=== PATIENT | female | born 1995 | race Caucasian/White ===

== ENCOUNTER 2020-09-06 10:48 | Outpatient (CLI) | payer MEDICAID, SELFPAY ==
[2020-09-06 11:16] VITALS: BP 143/89; PULSE 87
[2020-09-06 11:22] LABS: Basophils Percent Auto 0.2 % (0.2-1.2); Eosinophils Absolute Auto 0.2 K/mm3 (0-0.3); Eosinophils Percent Auto 1.6 % (0-4.4); Hematocrit 28.3 % (37.0-47.0); Hemoglobin 9.5 g/dL (12.0-15.0); Immature Granulocyte Absolute 0.08 K/mm3 (0.00-0.031); Immature Granulocyte Percent A 0.8 % (0-0.5); Lymphocytes Absolute Auto 1.51 K/mm3 (0.9-3.2); Lymphocytes Percent Auto 15.2 % (18.3-44.2); Mean Corpuscular HGB Conc 33.6 g/dl (32-36); Mean Corpuscular Hemoglobin 29.6 pg (26-34); Mean Corpuscular Volume 88.2 fl (80-100); Mean Platelet Volume 9.5 fl (7.4-10.4); Monocytes Absolute Auto 0.7 K/mm3 (0.1-0.6); Monocytes Percent Auto 6.9 % (2.6-8.5); Neutrophils Absolute Auto 7.5 K/mm3 (1.3-6.7); Neutrophils Percent Auto 75.3 % (45.5-73.1); Platelet Count Result 278 k/mm3 (150-375); Red Blood Count 3.21 M/mm3 (4.2-5.4); Red Cell Distribution Width 12.7 % (11.5-14.5)
[2020-09-06 11:29] LABS: Add Urine Microscopic? YES; Appearance Urine Cloudy (Clear); Bacteria Urine Trace /hpf; Bilirubin Urine Negative (Negative); Blood Urine 1+ (Negative); Color Urine Yellow (Yellow); Glucose Urine UA Negative (Negative); Ketones Urine Negative (Negative); Leukocyte Esterase Ur Negative LEU/UL (NEGATIVE); Mucus Urine Rare /lpf; Nitrate Urine Negative (Negative); Protein Urine Negative (Negative); Specific Grav Ur 1.009 (1.001-1.035); Squamous Epithelial Cell Urine Many /hpf (Few); Urobilinogen Urine Negative mg/dL (<2.0); WBC Urine 0-3 /hpf (0-3)
[2020-09-06 11:30] VITALS: BP 142/84; PULSE 80
[2020-09-06 11:33] LABS: Creatinine Urine 38.7 mg/dL; Total Protein Urine Random 15 mg/dL; Ur Ttl Prot Creatinine Ratio 0.39 mg/mg (0-0.20)
[2020-09-06 11:40] LABS: Alanine Aminotransferase 11 U/L (4-35); Albumin Level 3.7 g/dL (3.5-5.1); Alkaline Phosphatase 94 U/L (38-126); Anion Gap 9 mmol/L (8-16); Aspartate Amino Transferase 19 U/L (14-36); Bilirubin,Total 0.3 mg/dL (0.2-1.3); Blood Urea Nitrogen 7 mg/dL (7-17); Calcium 8.5 mg/dL (8.4-10.2); Carbon Dioxide 20 mmol/L (22-30); Chloride 107 mmol/L (98-107); Estimated Glomerular Filt Rate > 60; Glucose 81 mg/dL (65-105); Potassium 3.6 mmol/L (3.4-5.0); Sodium 136 mmol/L (137-145); Uric Acid 3.8 mg/dL (2.5-7.5)
[2020-09-06] MEDS: BETAMETHASONE SOD PHOS/ACETATE 30 MG/5 ML VIAL 12 MG IM (11:42)
[2020-09-06 11:45] VITALS: BP 138/82; PULSE 80
--- NOTE | 2020-09-06 11:48 | PC.NURSE ---
Called Dr. Jin with lab results and BPs. Informed that pt states that she has a slight headache, but has not taken anything for it. May D/C home with 24hr urine and return tomorrow for 2nd Celestone injection. Follow up in office early next week.
== END 2020-09-06 12:00 | disposition home or self-care (01) ==
LOC: ANHOBOP 10:53 → ANHOBPP 10:54
PROVIDERS: Referring Provider Obstetrics & Gynecology; Visit Provider Obstetrics & Gynecology
DX: O13.9 Gestational [pregnancy-induced] hypertension without significant proteinuria, unspecified trimester (principal); Z3A.00 Weeks of gestation of pregnancy not specified
CPT/HCPCS: 36415; 59025; 80053; 81001; 82570; 84156; 84550; 85025; 87086; 99199; J0702

== ENCOUNTER 2020-09-07 11:38 | Outpatient (CLI) | payer MEDICAID, SELFPAY ==
[2020-09-07 11:46] VITALS: BMI 26.5
[2020-09-07] MEDS: BETAMETHASONE SOD PHOS/ACETATE 30 MG/5 ML VIAL 12 MG IM (12:05)
[2020-09-07 13:51] LABS: Collection Time Urine 24 HOURS
[2020-09-07 13:58] LABS: Creatinine Urine 43.8 mg/dL; Patient Weight 164 Lbs
[2020-09-07 15:40] LABS: Specific Gravity Ur 1.008
[2020-09-07 16:03] LABS: Total Volume 24 Hour Urine 3100 ml
[2020-09-07 22:48] LABS: Total Protein Urine 24 Hr 11 MG/DAY (28-141)
== END 2020-09-07 11:39 | disposition home or self-care (01) ==
LOC: ANHOBOP 11:42
PROVIDERS: Visit Provider Obstetrics & Gynecology
DX: O13.9 Gestational [pregnancy-induced] hypertension without significant proteinuria, unspecified trimester (principal); Z3A.00 Weeks of gestation of pregnancy not specified
CPT/HCPCS: 81050; 82575; 84156; 96372; J0702

== ENCOUNTER 2020-10-04 21:27 | Observation (INO) | payer OTHER, SELFPAY ==
[2020-10-04] VITALS (12 sets, daily range): BP systolic 127–145; BP diastolic 77–87; PULSE 89–103; TEMP 36.7
[2020-10-04 12:29] LABS: Basophils Percent Auto 0.2 % (0.2-1.2); Eosinophils Absolute Auto 0.1 K/mm3 (0-0.3); Eosinophils Percent Auto 0.6 % (0-4.4); Hematocrit 32.9 % (37.0-47.0); Hemoglobin 10.9 g/dL (12.0-15.0); Immature Granulocyte Absolute 0.09 K/mm3 (0.00-0.031); Immature Granulocyte Percent A 0.8 % (0-0.5); Lymphocytes Absolute Auto 1.47 K/mm3 (0.9-3.2); Lymphocytes Percent Auto 12.5 % (18.3-44.2); Mean Corpuscular HGB Conc 33.1 g/dl (32-36); Mean Corpuscular Hemoglobin 29.4 pg (26-34); Mean Corpuscular Volume 88.7 fl (80-100); Mean Platelet Volume 9.6 fl (7.4-10.4); Monocytes Absolute Auto 0.9 K/mm3 (0.1-0.6); Monocytes Percent Auto 7.7 % (2.6-8.5); Neutrophils Absolute Auto 9.2 K/mm3 (1.3-6.7); Neutrophils Percent Auto 78.2 % (45.5-73.1); Platelet Count Result 239 k/mm3 (150-375); Red Blood Count 3.71 M/mm3 (4.2-5.4); Red Cell Distribution Width 14.2 % (11.5-14.5); White Blood Count 11.8 K/mm3 (4.5-10.0)
[2020-10-04 12:31] LABS: Add Urine Microscopic? NO; Appearance Urine Clear (Clear); Bilirubin Urine Negative (Negative); Blood Urine Negative (Negative); Color Urine Straw (Yellow); Glucose Urine UA Negative (Negative); Ketones Urine Negative (Negative); Leukocyte Esterase Ur Negative LEU/UL (NEGATIVE); Nitrate Urine Negative (Negative); Protein Urine Negative (Negative); Urobilinogen Urine Negative mg/dL (<2.0)
[2020-10-04 12:39] LABS: Specific Grav Ur 1.003 (1.001-1.035)
[2020-10-04 12:42] LABS: Alanine Aminotransferase 11 U/L (4-35); Albumin Level 3.7 g/dL (3.5-5.1); Alkaline Phosphatase 140 U/L (38-126); Anion Gap 8 mmol/L (8-16); Aspartate Amino Transferase 19 U/L (14-36); Bilirubin,Total 0.3 mg/dL (0.2-1.3); Blood Urea Nitrogen 4 mg/dL (7-17); Calcium 8.8 mg/dL (8.4-10.2); Carbon Dioxide 21 mmol/L (22-30); Chloride 109 mmol/L (98-107); Estimated Glomerular Filt Rate > 60; Glucose 73 mg/dL (65-105); Potassium 3.7 mmol/L (3.4-5.0); Sodium 138 mmol/L (137-145); Uric Acid 4.1 mg/dL (2.5-7.5)
[2020-10-04 12:43] LABS: Creatinine Urine 14.6 mg/dL; Total Protein Urine Random 16 mg/dL
[2020-10-04] MEDS: busPIRone HCL 5 MG TABLET PO (15:46)
--- NOTE | 2020-10-04 18:51 | PC.NURSE ---
Patient resting quietly. Offers no complaints. went to get dinner for pt. Plan of care discussed. Will continue to monitor blood pressures.
--- NOTE | 2020-10-04 21:28 | PC.NURSE ---
2015 Update to Mario Ordonez per phone regarding additional home med (ASA). Orders received. Pt comfortable. No pain. NST reactive.
--- NOTE | 2020-10-04 21:33 | OBADM ---
Pt changed to Observation after HIP evaluation. This patient, Vy Durham, admitted to the OB room OB Post 111 for observation. Patient/family oriented to hospital policies and general routines including ID bracelet, bed and alarms, visiting hours, pain management, procedures, bathroom and other care routines, personal items, smoking policy, room service/diet, and visiting hours. Patient/Family are encouraged to report perceived risks to care and to ask questions if they do not understand what they are told or what they should do.
[2020-10-05] VITALS (11 sets, daily range): BP systolic 127–144; BP diastolic 78–92; PULSE 74–119; TEMP 36.7; BMI 27.3
--- NOTE | 2020-10-05 02:00 | PC.NURSE ---
0200 Pt has been sleeping. Offers no complaints. BP as noted.
--- NOTE | 2020-10-05 07:51 | PM.IMHP ---
H&P: HPI History of Present Illness Date/Time: 10/05/20 07:51 Chief Complaint: Hypertension in Narrative: Vy Durham is a 25 year old female sent over from the office with bp in severe range. No h/a, v/d, or e/p. She is 35w6d. Review of Systems Review of Systems: All systems reviewed & are unremarkable except as noted in HPI and below Meds Home Medications and Allergies Home Medications Medication Instructions Recorded Confirmed Type albuterol sulfate See Rx Instructions .ROUTE 10/04/20 10/04/20 History .COMPLEX PRN buspirone 5 mg TID 10/04/20 10/04/20 History Allergies Allergy/AdvReac Type Severity Reaction Status Date / Time No Known Allergies Allergy Unverified 09/25/18 19:10 Vital Signs Vital Signs - 24 hr 10/04/20 12:22 10/04/20 12:30 10/04/20 13:02 Temperature Pulse Rate 97 93 Blood Pressure 141/86 H 140/85 Blood Pressure [Right Arm] 141/86 H 10/04/20 13:14 10/04/20 15:08 10/04/20 16:00 Temperature Pulse Rate 89 89 93 Blood Pressure 138/79 127/77 Blood Pressure [Right Arm] 141/86 H 10/04/20 17:00 10/04/20 18:00 10/04/20 18:50 Temperature 98.1 F Pulse Rate 103 H 99 Blood Pressure 132/85 129/83 Blood Pressure [Right Arm] 10/04/20 19:00 10/04/20 20:01 10/04/20 22:18 Temperature Pulse Rate 90 94 101 H Blood Pressure 145/87 H 127/80 137/87 Blood Pressure [Right Arm] 10/05/20 01:43 10/05/20 06:48 10/05/20 07:00 Temperature Pulse Rate 74 98 86 Blood Pressure 132/78 144/90 H 132/83 Blood Pressure [Right Arm] 10/05/20 07:02 10/05/20 07:23 Temperature 98.1 F Pulse Rate 86 Blood Pressure Blood Pressure [Right Arm] 132/83 Exam Const: General: no acute distress Neck: Neck: supple and no JVD Resp: Auscultation: clear to auscultation bilaterally Cardio: Rate: regular rate GI: GI Palp: Yes Soft to palpation (Gravid) Skin: General skin exam: normal color Neuro: General: gait normal Extrem: General: normal to inspection Psych: Mental Status: mental status grossly normal H&P: Results Labs Labs: Short CBC 10/04/20 Range/Units 12:22 WBC 11.8 H (4.5-10.0) K/mm3 Hgb 10.9 L (12.0-15.0) g/dL Hct 32.9 L (37.0-47.0) % Plt Count 239 (150-375) k/mm3 BMP 10/04/20 12:22 Sodium 138 Potassium 3.7 Chloride 109 H Carbon Dioxide 21 L BUN 4 L Creatinine 0.60 L Glucose 73 Calcium 8.8 Liver Function 10/04/20 Range/Units 12:22 Total Bilirubin 0.3 (0.2-1.3) mg/dL AST 19 (14-36) U/L ALT 11 (4-35) U/L Alkaline Phosphatase 140 H (38-126) U/L Albumin 3.7 (3.5-5.1) g/dL Urine 10/04/20 Range/Units 12:22 Urine Color Straw (Yellow) Urine Appearance Clear (Clear) Urine pH 7.0 (5.0-9.0) Ur Specific [place] 1.003 (1.001-1.035) Urine Protein Negative (Negative) mg/dL Urine Glucose (UA) Negative (Negative) mg/dL Assessment and Plan Additional Plan No additional bp in severe range Denies PIH symptoms Labs normal with exception of pcr ration 24 hour urine Repeat labs Dr Perez aware and agrees with plan of care
[2020-10-05] MEDS: POLYSACCHARIDE IRON COMPLEX 150 MG CAPSULE PO (08:02)
[2020-10-05] MEDS: ASPIRIN 81 MG CHEWABLE TABLET PO (08:02)
[2020-10-05] MEDS: busPIRone HCL 5 MG TABLET PO ×2 (08:03→15:33)
[2020-10-05] MEDS: MULTIVIT/MIN/PREN/FOL AC/IRON TABLET 1 TAB PO (08:03)
[2020-10-05] MEDS: DOCUSATE SODIUM 100 MG CAPSULE PO (08:58)
[2020-10-05 13:23] LABS: Collection Time Urine 24 HOURS
[2020-10-05 13:23] LABS: Hematocrit 32.9 % (37.0-47.0); Hemoglobin 10.8 g/dL (12.0-15.0); Mean Corpuscular HGB Conc 32.8 g/dl (32-36); Mean Corpuscular Hemoglobin 29.5 pg (26-34); Mean Corpuscular Volume 89.9 fl (80-100); Mean Platelet Volume 9.9 fl (7.4-10.4); Platelet Count Result 263 k/mm3 (150-375); Red Blood Count 3.66 M/mm3 (4.2-5.4); Red Cell Distribution Width 14.2 % (11.5-14.5); White Blood Count 13.6 K/mm3 (4.5-10.0)
[2020-10-05 13:30] LABS: Creatinine Urine 49.4 mg/dL; Total Protein Urine Random 19 mg/dL
[2020-10-05 13:36] LABS: Alanine Aminotransferase 11 U/L (4-35); Albumin Level 3.7 g/dL (3.5-5.1); Alkaline Phosphatase 126 U/L (38-126); Anion Gap 6 mmol/L (8-16); Aspartate Amino Transferase 20 U/L (14-36); Bilirubin,Total 0.3 mg/dL (0.2-1.3); Blood Urea Nitrogen 8 mg/dL (7-17); Calcium 10.1 mg/dL (8.4-10.2); Carbon Dioxide 24 mmol/L (22-30); Chloride 106 mmol/L (98-107); Estimated Glomerular Filt Rate > 60; Glucose 76 mg/dL (65-105); Potassium 3.4 mmol/L (3.4-5.0); Sodium 136 mmol/L (137-145); Uric Acid 4.1 mg/dL (2.5-7.5)
[2020-10-05 13:54] LABS: Total Protein Urine 24 Hr 532 MG/DAY (28-141); Total Volume 24 Hour Urine 2800 ml
--- NOTE | 2020-10-05 14:00 | PC.NURSE ---
Spoke to Ted Miranda CNM and reported [facility] lab and 24 hour urine result. Ladonna has spoken to Dr. lomax. discharge order received with follow up on saturday.
[2020-10-05 14:15] LABS: Patient Weight 169 Lbs
[2020-10-05 14:18] LABS: Creatinine Clearance Urine 149.2 ml/min (75-125)
[2020-10-05 19:48] LABS: Specific Gravity Ur 1.008
== END 2020-10-05 15:40 | disposition home or self-care (01) ==
LOC: ANHOBOP 21:28 → ANHOBPP 21:28
PROVIDERS: Advanced Practice Midwife; Admitting Provider Obstetrics & Gynecology; Visit Provider Obstetrics & Gynecology
DX: O13.3 Gestational [pregnancy-induced] hypertension without significant proteinuria, third trimester (principal); Z3A.35 35 weeks gestation of pregnancy
CPT/HCPCS: 36415; 59025; 80053; 81003; 81050; 82570; 82575; 84156; 84550; 85025; 85027; 87086; A9270; G0378; G0379

== ENCOUNTER 2020-10-07 10:54 | Inpatient (IN) | payer OTHER, SELFPAY ==
[2020-10-07] VITALS (177 sets, daily range): BP systolic 74–153; BP diastolic 36–94; PULSE 72–121; RESP 16–18; TEMP 36.7–37.7; O2SAT 94–100; BMI 27.6
[2020-10-07 11:32] LABS: Basophils Percent Auto 0.3 % (0.2-1.2); Eosinophils Absolute Auto 0.1 K/mm3 (0-0.3); Eosinophils Percent Auto 0.6 % (0-4.4); Hematocrit 31.4 % (37.0-47.0); Hemoglobin 10.7 g/dL (12.0-15.0); Immature Granulocyte Absolute 0.11 K/mm3 (0.00-0.031); Immature Granulocyte Percent A 0.9 % (0-0.5); Lymphocytes Absolute Auto 1.74 K/mm3 (0.9-3.2); Mean Corpuscular HGB Conc 34.1 g/dl (32-36); Mean Corpuscular Hemoglobin 29.7 pg (26-34); Mean Corpuscular Volume 87.2 fl (80-100); Mean Platelet Volume 9.7 fl (7.4-10.4); Monocytes Absolute Auto 0.7 K/mm3 (0.1-0.6); Monocytes Percent Auto 6.3 % (2.6-8.5); Neutrophils Absolute Auto 8.9 K/mm3 (1.3-6.7); Neutrophils Percent Auto 76.9 % (45.5-73.1); Platelet Count Result 269 k/mm3 (150-375); Red Cell Distribution Width 14.2 % (11.5-14.5); White Blood Count 11.6 K/mm3 (4.5-10.0)
[2020-10-07 11:43] LABS: Alanine Aminotransferase 11 U/L (4-35); Albumin Level 3.6 g/dL (3.5-5.1); Alkaline Phosphatase 149 U/L (38-126); Anion Gap 7 mmol/L (8-16); Aspartate Amino Transferase 18 U/L (14-36); Bilirubin,Total 0.3 mg/dL (0.2-1.3); Blood Urea Nitrogen 4 mg/dL (7-17); Calcium 8.5 mg/dL (8.4-10.2); Carbon Dioxide 20 mmol/L (22-30); Chloride 110 mmol/L (98-107); Estimated Glomerular Filt Rate > 60; Glucose 92 mg/dL (65-105); Potassium 3.8 mmol/L (3.4-5.0); Sodium 137 mmol/L (137-145)
[2020-10-07] MEDS: LACTATED RINGERS 1,000 ML 125 ML IV CONT ×3 (11:55→18:35)
[2020-10-07] MEDS: OXYTOCIN 30 UNITS/NS 500 ML 30 UNITS/500 ML BAG IV CONT (11:59)
--- NOTE | 2020-10-07 12:08 | LDADM ---
This patient, Vy Durham, was admitted to Labor/Delivery/Recovery 108 on 10/07/20 at 10:54. Plans for labor, pain management and were discussed with patient. Patient/family oriented to hospital policies and general routines including ID bracelet, bed and alarms, visiting hours, pain management, procedures, bathroom and other care routines, personal items, smoking policy, room service/diet and guest tray routines, security routines, and visiting hours. Patient/Family are encouraged to report perceived risks to care and to ask questions if they do not understand what they are told or what they should do. See OBIX for further documentation.
--- NOTE | 2020-10-07 12:17 | WPDOBADMIT ---
Obstetrics - Admit Note Admission Note: record reviewed. No pertinent additions to the history and/or any subsequent changes in the physical findings that are not consistent with the expected course of the were found. Pt admitted for MIL for preeclampsia, bp's elevated, discussed with DR. Perez and plan for induction with pitocin. SVE 1.5/60/-2, attempted AROM, no fluid, continue pitocin, anticipate vaginal delivery Additions to the history and/or subsequent changes in the physical findings follow. None.
--- NOTE | 2020-10-07 12:19 | P.HP_ITS ---
H&P: HPI History of Present Illness Date/Time: 10/07/20 12:19 Chief Complaint: preeclampsia Narrative: Vy Durham is a 25 year old female Meds Home Medications and Allergies Home Medications Medication Instructions Recorded Confirmed Type albuterol sulfate See Rx Instructions .ROUTE 10/04/20 10/04/20 History .COMPLEX PRN buspirone 5 mg PO 0900,1500 tablet 10/05/20 Rx buspirone 10 mg PO 2200 tablet 10/05/20 Rx docusate sodium 100 mg PO Q12H PRN cap 10/05/20 Rx polysaccharide iron complex 150 mg PO DAILY@0800 cap 10/05/20 Rx prenat.vits,santhosh,bfp-zmyz-nfvis 1 tab PO QAM tablet 10/05/20 Rx [KPN] Allergies Allergy/AdvReac Type Severity Reaction Status Date / Time No Known Allergies Allergy Unverified 09/25/18 19:10 Vital Signs Vital Signs - 24 hr 10/07/20 11:30 10/07/20 11:45 10/07/20 12:00 Pulse Rate 102 H 104 H 107 H Blood Pressure 130/89 129/89 132/92 H H&P: Results Labs Labs: Short CBC 10/07/20 Range/Units 11:15 WBC 11.6 H (4.5-10.0) K/mm3 Hgb 10.7 L (12.0-15.0) g/dL Hct 31.4 L (37.0-47.0) % Plt Count 269 (150-375) k/mm3 BMP 10/07/20 11:15 Sodium 137 Potassium 3.8 Chloride 110 H Carbon Dioxide 20 L BUN 4 L Creatinine 0.50 L Glucose 92 Calcium 8.5 Liver Function 10/07/20 Range/Units 11:15 Total Bilirubin 0.3 (0.2-1.3) mg/dL AST 18 (14-36) U/L ALT 11 (4-35) U/L Alkaline Phosphatase 149 H (38-126) U/L Albumin 3.6 (3.5-5.1) g/dL Assessment and Plan Assessment and plan (1) Preeclampsia: Qualifiers: Trimester: third trimester Qualified Code(s): O14.93 - Unspecified pre- eclampsia, third trimester Code(s): O14.90 - Unspecified pre-eclampsia, unspecified trimester Status: Acute
[2020-10-07 13:29] LABS: Uric Acid 3.9 mg/dL (2.5-7.5)
[2020-10-07] MEDS: AMPICILLIN 2 GM/NS 100 ML 2 GM/100 ML BAG IVPB (13:37)
--- NOTE | 2020-10-07 15:09 | WPDANESEPP ---
Anes - Eval Pre Procedure Procedure: Labor Epidural Date/Time: 10/07/20 15:09 Surgeon: Chris Preop Diagnosis: Labor Pain Pre Op Diagnosis: Induction of Labor Patient Data Age: 25 Gender: F Height: 5 ft 6 in Weight: 77.5 kg Last Vital Signs Temp 36.9 C 10/07/20 13:40 Pulse 79 10/07/20 15:09 Resp 16 10/07/20 13:40 BP 119/63 10/07/20 15:09 Pulse Ox 99 10/07/20 15:08 Allergies Allergy/AdvReac Type Severity Reaction Status Date / Time No Known Allergies Allergy Verified 10/07/20 13:16 Home Medications Medication Instructions Recorded Confirmed Type albuterol sulfate See Rx Instructions .ROUTE 10/04/20 10/07/20 History .COMPLEX PRN buspirone 5 mg PO 0900,1500 tablet 10/05/20 10/07/20 Rx buspirone 10 mg PO 2200 tablet 10/05/20 10/07/20 Rx docusate sodium 100 mg PO Q12H PRN cap 10/05/20 10/07/20 Rx polysaccharide iron complex 150 mg PO DAILY@0800 cap 10/05/20 10/07/20 Rx prenat.vits,santhosh,hfr-oxuh-ossdc 1 tab PO QAM tablet 10/05/20 10/07/20 Rx [KPN] aspirin [Baby Aspirin] BID 10/07/20 History Laboratory Tests 10/07/20 10/07/20 10/07/20 11:15 11:15 11:15 WBC 11.6 K/mm3 H K/mm3 (4.5-10.0) RBC 3.60 M/mm3 L M/mm3 (4.2-5.4) Hgb 10.7 g/dL L g/dL (12.0-15.0) Hct 31.4 % L % (37.0-47.0) MCV 87.2 fl fl (80-100) MCH 29.7 pg pg (26-34) MCHC 34.1 g/dl g/dl (32-36) RDW 14.2 % % (11.5-14.5) Plt Count 269 k/mm3 k/mm3 (150-375) MPV 9.7 fl fl (7.4-10.4) Immature Gran % (Auto) 0.9 % H % (0-0.5) Neut % (Auto) 76.9 % H % (45.5-73.1) Lymph % (Auto) 15.0 % L % (18.3-44.2) [place] % (Auto) 6.3 % % (2.6-8.5) Eos % (Auto) 0.6 % % (0-4.4) Baso % (Auto) 0.3 % % (0.2-1.2) Lymph # (Auto) 1.74 K/mm3 K/mm3 (0.9-3.2) [place] # (Auto) 0.7 K/mm3 H K/mm3 (0.1-0.6) Eos # (Auto) 0.1 K/mm3 K/mm3 (0-0.3) Baso # (Auto) 0.0 K/mm3 K/mm3 (0.0-0.1) Abs Immat Gran (auto) 0.11 K/mm3 H K/mm3 (0.00-0.031) Absolute Neuts (auto) 8.9 K/mm3 H K/mm3 (1.3-6.7) Absolute Nucleated RBC 0.0 K/mm3 K/mm3 (0.0-0.012) Nucleated RBC % 0.0 % % (0.0-0.2) Sodium Potassium Chloride Carbon Dioxide Anion Gap BUN Creatinine Estim Creat Clear Calc Estimated GFR Glucose Uric Acid 3.9 mg/dL mg/dL (2.5-7.5) Calcium Total Bilirubin AST ALT Alkaline Phosphatase Total Protein Albumin RPR Pending Blood Type Antibody Screen 10/07/20 10/07/20 11:15 11:15 WBC RBC Hgb Hct MCV MCH MCHC RDW Plt Count MPV Immature Gran % (Auto) Neut % (Auto) Lymph % (Auto) [place] % (Auto) Eos % (Auto) Baso % (Auto) Lymph # (Auto) [place] # (Auto) Eos # (Auto) Baso # (Auto) Abs Immat Gran (auto) Absolute Neuts (auto) Absolute Nucleated RBC Nucleated RBC % Sodium 137 mmol/L mmol/L (137-145) Potassium 3.8 mmol/L mmol/L (3.4-5.0) Chloride 110 mmol/L H mmol/L (98-107) Carbon Dioxide 20 mmol/L L mmol/L (22-30) Anion Gap 7 mmol/L L mmol/L (8-16) BUN 4 mg/dL L mg/dL (7-17) Creatinine 0.50 mg/dL L mg/dL (0.7-1.0) Estim Creat Clear Calc Not Reportable Estimated GFR > 60 (59 - ) Glucose 92 mg/dL mg/dL (65-105) Uric Acid Calcium 8.5 mg/dL mg/dL (8.4-10.2) Total Bilirubin 0.3 mg/dL mg/dL (0.2-1.3) AST 18 U/L U/L
[2020-10-07] MEDS: AMPICILLIN 1 GM/NS 50 ML 1 GM/50 ML BAG IVPB ×2 (16:32→20:29)
[2020-10-07] MEDS: ACETAMINOPHEN 500 MG TABLET 1000 MG PO (20:47)
[2020-10-07] MEDS: LORATADINE 10 MG TABLET PO (22:53)
[2020-10-08] VITALS (75 sets, daily range): BP systolic 112–148; BP diastolic 67–125; PULSE 52–146; RESP 16–18; TEMP 36.7–37.7; O2SAT 79–100
[2020-10-08] MEDS: AMPICILLIN 1 GM/NS 50 ML 1 GM/50 ML BAG IVPB (00:23)
--- NOTE | 2020-10-08 03:54 | PM.OBPRVD ---
OB - Delivery Note Procedure Delivery date: 10/08/20 Procedure: events: Pre-Eclampsia Intrapartal events: None Induction method: AROM and per pitocin protocol Delivery monitor: external FHT and internal uterine Route of delivery: Episiotomy description: None Laceration Description: Perineal - 2nd Degree Delivery repair: vicryl Quantitative Blood Loss (ml): 200 Anesthesia type: Epidural Disposition: floor Baby Date of : 10/08/20 Time of : 03:38 Weeks of gestation at delivery: 36 Infant gender: Female Weight (pounds): 6 Weight (ounces): 8 presentation: vertex position: Right Occiput Anterior Placenta delivery description: Spontaneous cord vessel description: 3 Vessels score one minute: 9 score five minutes: 9
[2020-10-08] MEDS: OXYTOCIN 30 UNITS/NS 500 ML 30 UNITS/500 ML BAG 125 UNITS IV CONT (04:09)
[2020-10-08] MEDS: IBUPROFEN 600 MG TABLET PO ×3 (05:35→20:56)
[2020-10-08] MEDS: BENZOCAINE 20% AER SPR (*SP) 56 GM CAN 1 SPRAY TOPICAL (05:35)
[2020-10-08] MEDS: WITCH HAZEL 40 PADS 1 PAD TOPICAL (05:35)
--- NOTE | 2020-10-08 06:23 | PC.NURSE ---
PT arrived on unit via wheelchair accompanied by spouse and and taken to room 286. PT oriented to room and surrounding area. PT introductions made and plan of care discussed per post , pain management, breast feeding, daily care activities and . PT verbalized understanding of such care.
[2020-10-08] MEDS: DOCUSATE SODIUM 100 MG CAPSULE PO ×2 (08:05→16:59)
[2020-10-08] MEDS: ACETAMINOPHEN 325 MG TABLET 650 MG PO ×3 (08:06→20:57)
[2020-10-08] MEDS: MULTIVIT/MIN/PREN/FOL AC/IRON TABLET 1 TAB PO (08:06)
[2020-10-08] MEDS: busPIRone HCL 5 MG TABLET PO ×2 (08:08→14:53)
[2020-10-08] MEDS: LANOLIN (LANSINOH) 7.5 GM CREAM 1 APPLIC TOPICAL (08:09)
--- NOTE | 2020-10-08 13:03 | PM.OBPNVD ---
OB - PN: Subj Subjective Date/time seen: 10/08/20 13:03 Patient comments: no complaints, pain well controlled, incisional pain, tolerating diet and flatus present OB - PN: Obj Data Labs CBC & Chem 7: 10/07/20 11:15 10/07/20 11:15 Labs: Laboratory Results - last 24 hr 10/07/20 11:15 Uric Acid 3.9 OB - PN A/P Plan day: 1 Plan: routine care Comments: No problems, routine care Time Spent With Patient Time: Total time spent is greater than 50% in coordination of care (as documented) at patient's floor/unit and/or counseling patient: Exam Const: General: comfortable, no acute distress and alert Resp: Effort & Inspection: normal respiratory effort Auscultation: no crackles, no rales and no rhonchi Cardio: Rate: regular rate Heart sounds: no click, no murmurs and no rubs GI: Inspection: non-distended GI Palp: No Tenderness to palpation present (GI) Auscultation: normal bowel sounds Other: Incision - CDI Extrem: General: normal to inspection, no pedal edema and no calf tenderness
[2020-10-08] MEDS: busPIRone HCL 10 MG TABLET PO (20:56)
[2020-10-09] MEDS: IBUPROFEN 600 MG TABLET PO ×3 (05:37→20:11)
[2020-10-09 05:57] LABS: Hematocrit 29.2 % (37.0-47.0); Hemoglobin 9.8 g/dL (12.0-15.0)
--- NOTE | 2020-10-09 07:30 | PC.NURSE ---
PT introductions made and plan of care discussed per post , pain management, daily care activities, breast feeding, pumping, pending discharge to home . PT verbalized understanding of such care
[2020-10-09] MEDS: busPIRone HCL 5 MG TABLET PO ×2 (07:58→14:14)
[2020-10-09] MEDS: DOCUSATE SODIUM 100 MG CAPSULE PO ×2 (07:58→18:09)
[2020-10-09] MEDS: POLYSACCHARIDE IRON COMPLEX 150 MG CAPSULE PO ×2 (07:59→18:09)
[2020-10-09] MEDS: TETANUS,DIPHTHERIA,AC PERTUSSIS ADULT (0.5 ML) BOOSTRIX IM (07:59)
[2020-10-09] MEDS: MULTIVIT/MIN/PREN/FOL AC/IRON TABLET 1 TAB PO (07:59)
[2020-10-09] MEDS: ACETAMINOPHEN 325 MG TABLET 650 MG PO ×3 (07:59→22:44)
[2020-10-09 08:00] VITALS: BP 143/96; PULSE 77; RESP 18; TEMP 36.6; O2SAT 100
--- NOTE | 2020-10-09 09:42 | WPDANLDPN2 ---
Anes-Prog Note L&D Date/Time: 10/09/20 09:42 Comfortable throughout: labor and delivery Neuraxial method: epidural Epidural/Spinal procedure site: clean & non-tender Neuro status: Neuro function grossly intact. Cardiovascular status: normal Respiratory status: normal Airway patency: baseline Mental status: baseline Post-Op hydration status: normal Vital Signs: Last Vital Signs Temp 36.7 C 10/08/20 19:40 Pulse 77 10/08/20 19:40 Resp 18 10/08/20 19:40 BP 140/90 10/08/20 19:40 Pulse Ox 100 10/08/20 19:40 Pain score (VAS): 0 Post-procedural complaints: none Patient feedback: Patient satisfied with anesthetic care.
--- NOTE | 2020-10-09 11:52 | PM.OBPNVD ---
OB - PN: Subj Subjective Date/time seen: 10/09/20 11:52 Patient comments: no complaints, pain well controlled, incisional pain, tolerating diet and flatus present OB - PN: Obj Data Labs CBC & Chem 7: 10/09/20 05:41 10/07/20 11:15 Labs: Laboratory Results - last 24 hr 10/09/20 05:41 Hgb 9.8 L Hct 29.2 L OB - PN A/P Plan day: 1 Plan: routine care Comments: No problems, routine care, elevated BP's to continue obs. Time Spent With Patient Time: Total time spent is greater than 50% in coordination of care (as documented) at patient's floor/unit and/or counseling patient: Exam Const: General: comfortable, no acute distress and alert Resp: Effort & Inspection: normal respiratory effort Auscultation: no crackles, no rales and no rhonchi Cardio: Rate: regular rate Heart sounds: no click, no murmurs and no rubs GI: Inspection: non-distended GI Palp: No Tenderness to palpation present (GI) Auscultation: normal bowel sounds Other: Incision - CDI Extrem: General: normal to inspection, no pedal edema and no calf tenderness
[2020-10-09 15:00] VITALS: BP 132/92; PULSE 84; RESP 18; O2SAT 100
[2020-10-09 20:10] VITALS: BP 146/90; PULSE 80; RESP 16; TEMP 36.4; O2SAT 100
--- NOTE | 2020-10-09 21:00 | PC.NURSE ---
Patient was given the opportunity to view the discharge video Mother & Baby Care, The First Two Weeks and to ask questions. Patient declined viewing the video and has been given the mother/baby guide for home reference.
[2020-10-09] MEDS: busPIRone HCL 10 MG TABLET PO (21:17)
[2020-10-09 22:00] VITALS: BP 147/90
[2020-10-10] MEDS: IBUPROFEN 600 MG TABLET PO (05:28)
[2020-10-10 07:00] VITALS: BP 136/89; PULSE 86; RESP 18; TEMP 36.9
--- NOTE | 2020-10-10 07:44 | PM.OBPNVD ---
OB - PN: Subj Subjective Date/time seen: 10/10/20 07:44 Patient comments: no complaints baby status: doing well OB - PN: Obj Data Labs CBC & Chem 7: 10/09/20 05:41 10/07/20 11:15 OB - PN A/P Plan day: 2 Plan: routine care Time Spent With Patient Time: Total time spent is greater than 50% in coordination of care (as documented) at patient's floor/unit and/or counseling patient: Time with patient: less than 15 minutes Review of Systems Review of Systems: All systems reviewed & are unremarkable except as noted in HPI and below Exam Narrative: Exam Narrative: Fundus firm and vaginal flow controlled. No lower ext redness, warmth, or edema. Negative homans. Denies h/a, v/d or e/p. Reflexes normal. Const: General: comfortable Chest: Breast/axilla inspection: normal inspection of the breasts Resp: Effort & Inspection: normal respiratory effort Cardio: Rate: regular rate GI: GI Palp: Yes Soft to palpation Psych: Appearance: grossly normal Affect: normal affect Attitude: cooperative Thought content: Yes Normal thought content present Judgement: Good judgement present (Psych)
[2020-10-10] MEDS: POLYSACCHARIDE IRON COMPLEX 150 MG CAPSULE PO (08:41)
[2020-10-10] MEDS: MULTIVIT/MIN/PREN/FOL AC/IRON TABLET 1 TAB PO (08:41)
[2020-10-10] MEDS: busPIRone HCL 5 MG TABLET PO (08:41)
[2020-10-10] MEDS: DOCUSATE SODIUM 100 MG CAPSULE PO (08:41)
[2020-10-10] MEDS: WITCH HAZEL 40 PADS 1 PAD TOPICAL (08:42)
[2020-10-10 08:49] LABS: Rapid Plasma Reagin Non-Reactive (NonReactive)
--- NOTE | 2020-10-10 09:40 | PC.NURSE ---
Consulted with patient, reviewed infant feeding cues, frequencies, duration of feedings, feeding elimination flow sheet, and signs of adequate intake. Demonstrated stimulation techniques to wake infant for feeding. Assisted with infant to breast. Reviewed positioning/alignment, holding breast and asymmetrical latch on. Infant was able to latch correctly. Infant nursed in spurts with steady draws and frequent swallowing noted. would come off breast between spurts of sucking and have to relatch. Mom shown to hand express before latch and use compression while is nursing. Mom able to express good amounts of milk. Reviewed signs of a correct latch, effective nursing and suck swallow ratio. Infant was able to maintain latch without discomfort to mother. Nipple care reviewed. Instructed mother to call out for RN assistance if she is unable to latch for feeding or she has discomfort with nursing. Instructed feeding should be initiated three hours from start of last feeding or if feeding cues are noted before. Mother voiced understanding of information shared. Mother verbalizes she is able to independently latch infant with appropriate positioning/alignment. She denies any nipple discomfort, is feeding as required and waking infant to feed if needed. has had 9 effective feedings in the past 24 hours with supplementation after feedings, and is currently meeting outcomes for weight, output, jaundice and feeding frequencies. Mother states she feels confident to continue effective at home. Reviewed transition to breast milk, signs of adequate intake, and engorgement/relief. Instructed to call ICP if intake/output less than required. Reviewed community resources on the [facility] website and in the Mom/Baby guide. Information on outpatient services provided. Mother has no further questions at this time. Breast pump at bedside. Mom is doing method of feeding and pumping. Instructions given on breast pump care and usage, pumping schedule, nipple care, and collection and storage of breast milk. Encouraged [id number], breast massage and manual expression to stimulate supply. Mom states she has the correct flange size, placement and draw. She denies needing any assistance with pumping. Patient verbalizes and demonstrates understanding of instructions.
[2020-10-10] MEDS: MEASLES,MUMPS,RUBELLA VACCINE 0.5 ML VIAL SUB-Q (11:02)
--- NOTE | 2020-10-10 11:42 | PM.OBDSVD ---
DS: Admitting Diagnosis Admitting Diagnosis Admitting Diagnosis: pre-eclampsia DS: Discharge Diagnosis Discharge Diagnosis (1) Vaginal delivery: Code(s): O80 - Encounter for full-term uncomplicated delivery Status: Acute OB - DS: Summary OB Procedures : PIH Mgmt OB Procedures Intrapartum: Spontaneous Vag Delivery OB Procedures: : None Time Spent with Patient Time attestation: Total time spent providing and/or coordinating discharge services: DS: Data Data Completed and Pending Pending studies at discharge: Pending at discharge 10/08/20 03:44 Surgical [PTH] Routine Labs on day of discharge: Labs from last 24 hours 10/07/20 11:15 RPR Non-reactive Discharge Plan Discharge Attending physician on discharge: Colby Perez Discharging Clinician: Merissa Ordonez Patient Disposition: Home, Self-Care Activity: pelvic rest Diet: as tolerated Discharge Instructions: RTC in 1 week for blood pressure check. PIH precautions discussed with patient in detail. Patient Instructions: Antibiotic Form Stand Alone Forms: General Discharge Information Follow-up/Referrals: Colby Perez MD [Physician] - Discharge Medications: Continued aspirin [Aspirin Childrens] 81 mg Tablet,Chewable 1 mg PO BID RF: 0 albuterol sulfate 90 mcg/actuation HFA aerosol inhaler See Rx Instructions .ROUTE .COMPLEX PRN (Reason: asthma) RF: 0 buspirone 5 mg Tablet 5 mg PO 0900,1500 RF: 0 polysaccharide iron complex 150 mg iron Capsule 150 mg PO DAILY@0800 RF: 0 buspirone 10 mg Tablet 10 mg PO 2200 RF: 0 docusate sodium 100 mg Capsule 100 mg PO Q12H PRN (Reason: Constipation) RF: 0 KPN Tablet 1 tab PO QAM RF: 0 Date of admission: 10/07/20 10:54 Primary Care Provider: PHYSICIAN,SUPERVISOR [employer] Admitting Provider: Colby Perez Attending physician on admission: Colby Perez Condition: Stable
--- NOTE | 2020-10-10 13:12 | PC.NURSE ---
Called to bedside, infant assisted to the breast. ate at breast in football position for approximately 5 minutes consistently then infant was on and off breast. Switched to cross cradle position without consistent latch. Spoke to mom about risks and benefits of nipple shield and mom desires to try. latches with shield for 2-3 minutes. Encouraged mom to continue attempting at breast first then with nipple shield if needed and pump after for extra stimulation. Mom will continue to supplement post feedings at home. Nipple shield provided to mother due to mom's choice to try to get infant to stay at breast for a more consistent feeding. Instructions given on application and cleaning of shield. Discussed nipple shield precautions and possible complications. Patient able to return demonstration on proper application of shield. Discussed the need to initiate pumping if infant continues to nurse with the shield. Patient verbalizes understanding.
[2020-10-11 09:48] VITALS: BP 156/98; PULSE 98; RESP 20; TEMP 36.7; O2SAT 100
== END 2020-10-10 14:34 | disposition home or self-care (01) | DRG 560 ==
LOC: ANHLDR 11:00 → ANHOB2 10-08 06:43
PROVIDERS: Admitting Provider Obstetrics & Gynecology; Visit Provider Obstetrics & Gynecology
DX: O14.94 Unspecified pre-eclampsia, complicating childbirth (principal); O70.1 Second degree perineal laceration during delivery; O76 Abnormality in fetal heart rate and rhythm complicating labor and delivery; Z3A.36 36 weeks gestation of pregnancy; Z37.0 Single live birth
CPT/HCPCS: 36415; 80053; 84550; 85014; 85018; 85025; 86592; 86850; 86900; 86901; 88307; 90710; 90715; A9270; J0290; J2590; J2795; J7120

== ENCOUNTER 2020-10-11 11:34 | Outpatient (CLI) | payer OTHER, SELFPAY ==
[2020-10-11] VITALS (19 sets, daily range): BP systolic 135–162; BP diastolic 75–105; PULSE 78–108; RESP 16; TEMP 36.7
[2020-10-11 12:15] LABS: Basophils Absolute Auto 0.1 K/mm3 (0.0-0.1); Basophils Percent Auto 0.5 % (0.2-1.2); Eosinophils Absolute Auto 0.4 K/mm3 (0-0.3); Eosinophils Percent Auto 3.2 % (0-4.4); Hematocrit 33.7 % (37.0-47.0); Hemoglobin 11.3 g/dL (12.0-15.0); Immature Granulocyte Absolute 0.12 K/mm3 (0.00-0.031); Immature Granulocyte Percent A 1.1 % (0-0.5); Lymphocytes Percent Auto 16.2 % (18.3-44.2); Mean Corpuscular HGB Conc 33.5 g/dl (32-36); Mean Corpuscular Hemoglobin 29.5 pg (26-34); Mean Platelet Volume 9.2 fl (7.4-10.4); Monocytes Absolute Auto 0.7 K/mm3 (0.1-0.6); Neutrophils Absolute Auto 8.1 K/mm3 (1.3-6.7); Platelet Count Result 271 k/mm3 (150-375); Red Blood Count 3.83 M/mm3 (4.2-5.4); Red Cell Distribution Width 14.6 % (11.5-14.5); White Blood Count 11.1 K/mm3 (4.5-10.0)
[2020-10-11 12:43] LABS: Alanine Aminotransferase 17 U/L (4-35); Albumin Level 3.5 g/dL (3.5-5.1); Alkaline Phosphatase 99 U/L (38-126); Anion Gap 7 mmol/L (8-16); Aspartate Amino Transferase 26 U/L (14-36); Bilirubin,Total 0.2 mg/dL (0.2-1.3); Blood Urea Nitrogen 10 mg/dL (7-17); Calcium 8.6 mg/dL (8.4-10.2); Carbon Dioxide 24 mmol/L (22-30); Chloride 109 mmol/L (98-107); Estimated Glomerular Filt Rate > 60; Glucose 78 mg/dL (65-105); Potassium 3.7 mmol/L (3.4-5.0); Sodium 140 mmol/L (137-145)
--- NOTE | 2020-10-11 12:45 | PC.NURSE ---
called Dorys JIMÉNEZ with BP. order received for labetalol and observe for two hours
[2020-10-11] MEDS: LABETALOL HCL 100 MG TABLET 200 MG PO (13:00)
--- NOTE | 2020-10-11 16:00 | PC.NURSE ---
spoke to Ladonna JIMÉNEZ and updated BP. okay to discharge with labetalol RX. follow up in Office saturday or saturday.
== END 2020-10-11 16:50 | disposition home or self-care (01) ==
LOC: ANHOBOP 11:39 → ANHOBPP 11:39
PROVIDERS: Advanced Practice Midwife; Visit Provider Obstetrics & Gynecology
DX: O13.9 Gestational [pregnancy-induced] hypertension without significant proteinuria, unspecified trimester (principal); Z3A.00 Weeks of gestation of pregnancy not specified
CPT/HCPCS: 36415; 80053; 84550; 85025; 99199; A9270

== ENCOUNTER 2020-10-15 00:12 | Observation (INO) | payer OTHER, SELFPAY ==
[2020-10-14] VITALS (13 sets, daily range): BP systolic 137–168; BP diastolic 82–95; PULSE 59–83
--- NOTE | 2020-10-14 20:45 | OBADM ---
This patient, Vy Durham, admitted to the OB room OB Post 117 for observation. Patient/family oriented to hospital policies and general routines including ID bracelet, bed and alarms, visiting hours, pain management, procedures, bathroom and other care routines, personal items, smoking policy, room service/diet, and visiting hours. Patient/Family are encouraged to report perceived risks to care and to ask questions if they do not understand what they are told or what they should do.
--- NOTE | 2020-10-14 21:05 | PC.NURSE ---
pt has complaints of high blood pressure reaching the 190 systolic. pt has had an eventful last week. pt was tearful explaining that her baby has a NICU stay and today was the 1st time she has seen her 1 year old in 2 weeks. Pt states that she deals with anxiety normally but has been much higher recently. Pt states she took her first dose of Labetalol 200mg around 12 this afternoon. Pt states when she started feeling bad later this afternoon she took her blood pressure and was 180/ 190s systolic. She said she has a headache and had floaters. She then took Labetalol 100mg at 7pm. She rechecked her blood pressure and it was still elevated so she came in for evaluation. Currently, the pt has no complaints of a headache, no floaters, no vision changes and has no complaints of epigastric pain.
[2020-10-14] MEDS: LABETALOL HCL 100 MG TABLET PO (21:35)
[2020-10-14 21:48] LABS: Basophils Absolute Auto 0.1 K/mm3 (0.0-0.1); Basophils Percent Auto 0.5 % (0.2-1.2); Eosinophils Absolute Auto 0.5 K/mm3 (0-0.3); Eosinophils Percent Auto 4.8 % (0-4.4); Hematocrit 33.2 % (37.0-47.0); Immature Granulocyte Absolute 0.03 K/mm3 (0.00-0.031); Immature Granulocyte Percent A 0.3 % (0-0.5); Lymphocytes Absolute Auto 1.82 K/mm3 (0.9-3.2); Mean Corpuscular HGB Conc 33.1 g/dl (32-36); Mean Corpuscular Hemoglobin 29.5 pg (26-34); Monocytes Absolute Auto 0.7 K/mm3 (0.1-0.6); Monocytes Percent Auto 7.1 % (2.6-8.5); Neutrophils Absolute Auto 6.6 K/mm3 (1.3-6.7); Neutrophils Percent Auto 68.3 % (45.5-73.1); Platelet Count Result 274 k/mm3 (150-375); Red Blood Count 3.73 M/mm3 (4.2-5.4); Red Cell Distribution Width 14.6 % (11.5-14.5); White Blood Count 9.6 K/mm3 (4.5-10.0)
[2020-10-14 22:00] LABS: Alanine Aminotransferase 21 U/L (4-35); Albumin Level 3.8 g/dL (3.5-5.1); Alkaline Phosphatase 87 U/L (38-126); Anion Gap 6 mmol/L (8-16); Aspartate Amino Transferase 27 U/L (14-36); Bilirubin,Total 0.4 mg/dL (0.2-1.3); Blood Urea Nitrogen 10 mg/dL (7-17); Calcium 8.8 mg/dL (8.4-10.2); Carbon Dioxide 22 mmol/L (22-30); Chloride 110 mmol/L (98-107); Estimated Glomerular Filt Rate > 60; Glucose 87 mg/dL (65-105); Potassium 3.4 mmol/L (3.4-5.0); Sodium 138 mmol/L (137-145); Uric Acid 5.5 mg/dL (2.5-7.5)
[2020-10-15] VITALS (17 sets, daily range): BP systolic 119–146; BP diastolic 69–95; PULSE 60–103; TEMP 36.5–36.6; BMI 27.5
[2020-10-15] MEDS: LABETALOL HCL 100 MG TABLET PO (00:06)
--- NOTE | 2020-10-15 08:36 | PC.NURSE ---
Ted Miranda CNM at bedside discussing plan of care with pt. New orders received to give 300mg Labetalol PO BID at 0900 and 2100, 10mg of Flexeril, watch pt until 1000 and if blood pressures are WNL, pt may be discharged home.
--- NOTE | 2020-10-15 08:43 | PM.IMHP ---
H&P: HPI History of Present Illness Date/Time: 10/15/20 08:43 Chief Complaint: elevated blood pressure Narrative: Vy Durham is a 25 year old female , delivered female on 10/08/2020 after being induced for preeclampsia. Pt has been on labetalol 200mg bid since a few days , presents last evening to LD with hx of headache earlier in the day and some blurry vision, on admission no symptoms. Bp's at home per pt were 160's/100's. Pt has been taking meds at 12 and 00 took an early dose of 100mg in the evening when pressures were elevated. initial pressure here severe range, subsequent elevated with out anymore severe range pressures.labs done and wnl. Review of Systems Review of Systems: All systems reviewed & are unremarkable except as noted in HPI and below PMFSH Family History Family History Other No significant medical problems Social History Social History Smoking status: Never smoker Alcohol intake: former Substance use: never Substance use type: does not use Gender identity (if verbalized by the patient): Female Spiritual care concerns: No Agree to blood products: Yes Meds Home Medications and Allergies Home Medications Medication Instructions Recorded Confirmed Type albuterol sulfate See Rx Instructions .ROUTE 10/04/20 10/07/20 History .COMPLEX PRN KPN 1 tab PO QAM tablet 10/05/20 10/07/20 Rx buspirone 5 mg PO 0900,1500 tablet 10/05/20 10/15/20 Rx buspirone 10 mg PO 2200 tablet 10/05/20 10/15/20 Rx docusate sodium 100 mg PO Q12H PRN cap 10/05/20 10/15/20 Rx polysaccharide iron complex 150 mg PO DAILY@0800 cap 10/05/20 10/15/20 Rx labetalol 200 mg PO Q12H 14 Days #56 tablet 10/11/20 10/15/20 Rx Allergies Allergy/AdvReac Type Severity Reaction Status Date / Time No Known Allergies Allergy Verified 10/07/20 13:16 Vital Signs Vital Signs - 24 hr 10/14/20 21:07 10/14/20 21:16 10/14/20 21:31 Temperature Pulse Rate 74 68 67 Blood Pressure 168/95 H 157/93 H 164/89 H 10/14/20 21:35 10/14/20 21:46 10/14/20 22:01 Temperature Pulse Rate 67 65 66 Blood Pressure 159/89 H 152/90 H 10/14/20 22:16 10/14/20 22:31 10/14/20 22:46 Temperature Pulse Rate 83 83 79 Blood Pressure 150/94 H 146/91 H 142/89 H 10/14/20 23:01 10/14/20 23:16 10/14/20 23:31 Temperature Pulse Rate 68 69 61 Blood Pressure 137/84 143/85 H 142/84 H 10/14/20 23:46 10/15/20 00:01 10/15/20 00:06 Temperature Pulse Rate 59 L 66 66 Blood Pressure 151/82 H 141/82 H 10/15/20 00:21 10/15/20 00:32 10/15/20 01:01 Temperature 36.6 C Pulse Rate 85 64 Blood Pressure 140/88 138/80 10/15/20 01:31 10/15/20 02:01 10/15/20 03:01 Temperature Pulse Rate 60 65 70 Blood Pressure 134/81 137/88 130/84 10/15/20 04:01 10/15/20 04:54 10/15/20 05:01 Temperature 36.5 C Pulse Rate 103 H 75 Blood Pressure 134/89 136/85 10/15/20 06:01 10/15/20 07:00 10/15/20 08:01 Temperature Pulse Rate 78 97 99 Blood Pressure 142/82 H 146/94 H 139/87 Exam Const: General: cooperative Nutritional Appearance: average body habitus Back/Spine/Pelvis: Cervical Spine: other (tenderness in neck muscle, no mass) Skin: General skin exam: normal color Neuro: General: patient oriented x3 Cognition (Neuro): normal cognition Speech: normal speech Extrem: Right lower extremity: normal to inspection Left lower extremity: normal to inspection Psych: Appearance: grossly normal Mental Status: mental status grossly normal Attitude: cooperative Thought content: Yes Normal thought content present Insight: Good insight present (Psych) Judgement: Good judgement present (Psych) H&P: Results Labs Labs: Short CBC 10/14/20 Range/Units 21:43 WBC 9.6 (4.5-10.0) K/mm3 Hgb 11.0 L (12.0-15.0) g/dL Hct 33.2 L (37.0-47.0) % Plt Count 274 (15
[2020-10-15] MEDS: CYCLOBENZAPRINE HCL 10 MG TABLET PO (08:50)
[2020-10-15] MEDS: LABETALOL HCL 100 MG TABLET 300 MG PO (08:50)
--- NOTE | 2020-10-15 08:50 | P.PNOB_ITS ---
OB - Triage/Final Diagnosis Visit Information Date of evaluation: 10/15/20 Reason for evaluation: other (hypertension, ) Evaluation Laboratory results: Laboratory Tests 10/14/20 10/14/20 21:43 21:43 WBC 9.6 RBC 3.73 L Hgb 11.0 L Hct 33.2 L MCV 89.0 MCH 29.5 MCHC 33.1 RDW 14.6 H Plt Count 274 MPV 9.0 Immature Gran % (Auto) 0.3 Neut % (Auto) 68.3 Lymph % (Auto) 19.0 Elliott % (Auto) 7.1 Eos % (Auto) 4.8 H Baso % (Auto) 0.5 Lymph # (Auto) 1.82 Elliott # (Auto) 0.7 H Eos # (Auto) 0.5 H Baso # (Auto) 0.1 Abs Immat Gran (auto) 0.03 Absolute Neuts (auto) 6.6 Absolute Nucleated RBC 0.0 Nucleated RBC % 0.0 Sodium 138 Potassium 3.4 Chloride 110 H Carbon Dioxide 22 Anion Gap 6 L BUN 10 Creatinine 0.70 Estim Creat Clear Calc Not Reportable Estimated GFR > 60 Glucose 87 Uric Acid 5.5 Calcium 8.8 Total Bilirubin 0.4 AST 27 ALT 21 Alkaline Phosphatase 87 Total Protein 7.0 Albumin 3.8 Vital signs: Vital Signs - 24 hr 10/14/20 21:07 10/14/20 21:16 10/14/20 21:31 Temperature Pulse Rate 74 68 67 Blood Pressure 168/95 H 157/93 H 164/89 H 10/14/20 21:35 10/14/20 21:46 10/14/20 22:01 Temperature Pulse Rate 67 65 66 Blood Pressure 159/89 H 152/90 H 10/14/20 22:16 10/14/20 22:31 10/14/20 22:46 Temperature Pulse Rate 83 83 79 Blood Pressure 150/94 H 146/91 H 142/89 H 10/14/20 23:01 10/14/20 23:16 10/14/20 23:31 Temperature Pulse Rate 68 69 61 Blood Pressure 137/84 143/85 H 142/84 H 10/14/20 23:46 10/15/20 00:01 10/15/20 00:06 Temperature Pulse Rate 59 L 66 66 Blood Pressure 151/82 H 141/82 H 10/15/20 00:21 10/15/20 00:32 10/15/20 01:01 Temperature 36.6 C Pulse Rate 85 64 Blood Pressure 140/88 138/80 10/15/20 01:31 10/15/20 02:01 10/15/20 03:01 Temperature Pulse Rate 60 65 70 Blood Pressure 134/81 137/88 130/84 10/15/20 04:01 10/15/20 04:54 10/15/20 05:01 Temperature 36.5 C Pulse Rate 103 H 75 Blood Pressure 134/89 136/85 10/15/20 06:01 10/15/20 07:00 10/15/20 08:01 Temperature Pulse Rate 78 97 99 Blood Pressure 142/82 H 146/94 H 139/87
== END 2020-10-15 10:37 | disposition home or self-care (01) ==
LOC: ANHOBPP 00:12
PROVIDERS: Advanced Practice Midwife; Admitting Provider Obstetrics & Gynecology; Visit Provider Obstetrics & Gynecology
DX: O16.5 Unspecified maternal hypertension, complicating the puerperium (principal)
CPT/HCPCS: 36415; 80053; 82248; 84550; 85025; A9270; G0378; G0379